=== PATIENT | female | born 1965 | race Caucasian/White ===

== ENCOUNTER → 2021-12-16 09:40 | Outpatient (CLI) | payer OTHER, SELFPAY ==
--- NOTE | ~2021-12-16 | DEXA_ITS ---
Bone Density Report Name: LALO HODGSON Age: 56 Sex: Female Ethnicity: White Date of : 1965 Indication: postmenopausal; screening for osteoporosis; prior fracture; Referring Provider: David*Basilio, Lucrecia Study: Bone densitometry was performed. Exam Date: December 16, 2021 Accession number: [id number] Bone Density: Region BMD T-score Z-score Classification AP Spine (L1, L2, L3) 1.090 0.7 1.9 Normal Femoral Neck (Left) 0.770 -0.7 0.5 Normal Total Hip (Left) 0.854 -0.7 0.1 Normal Femoral Neck (Right) 0.723 -1.1 0.1 Osteopenia Total Hip (Right) 0.825 -1.0 -0.1 Normal Total Hip Mean 0.840 -0.9 0.0 Normal World Health Organization criteria for BMD impression classify patients as: Normal (T-score at or above -1.0), Osteopenia (T-score between -1.0 and -2.5), or Osteoporosis (T-score at or below -2.5). 10-year Fracture Risk(1): Major Osteoporotic Fracture 12% Hip Fracture 1.2% Reported Risk Factors: [place] (), Neck BMD=0.723, BMI=26.0, previous fracture, smoking (1) FRAX(R) Version 3.08. Fracture probability calculated for an untreated patient. Fracture probability may be lower if the patient has received treatment. Clinical Information Provided by Patient: Has had a low trauma fracture Smokes Has used the following medications: Vitamin D, Calcium, MTV Patient maximum height was 60.0 Menopause Age: 47 No regular weight bearing exercise Drinks caffeinated beverages Onset of menses at age 9 Number of children 2 Impression: The patient has low bone mass, based on the Right Femoral Neck T-score. The patient has an estimated ten-year risk of hip fracture of 1.2% and an estimated ten-year risk of major fracture of 12%, based on the WHO FRAX algorithm. The patient has risk factors, including: smoking, previous fracture. Discussion: BONE DENSITY IS LOW AT ONE OR MORE SKELETAL SITES. This patient's lowest T-score is low at one or more skeletal sites. It meets the World Health Organization's (WHO) criteria for ?low bone mass? (T-score between -1.0 and -2.5). The patient's 10-year risk of fracture as calculated by FRAX is less than the threshold where pharmacological therapy is recommended by the National Osteoporosis Foundation (NOF). However, all treatment decisions require clinical judgment and consideration of individual patient factors, including patient preferences, comorbidities, previous drug use, risk factors not captured in the FRAX model (e.g., frailty, falls, vitamin D deficiency, increased bone turnover, interval significant decline in bone density) and possible under or overestimation of fracture risk by FRAX. The patient should follow a healthful lifestyle (good nutrition with adequate calcium and vitamin D, and appropriate weight-bearing exercise). Follow-Up
== END ==
PROVIDERS: PCP Internal Medicine; Visit Provider Nurse Practitioner
DX: Z13.820 Encounter for screening for osteoporosis (principal); Z78.0 Asymptomatic menopausal state; M85.851 Other specified disorders of bone density and structure, right thigh
CPT/HCPCS: 77080

== ENCOUNTER → 2022-05-07 14:14 | Outpatient (CLI) | payer OTHER, SELFPAY ==
--- NOTE | ~2022-05-07 | MM_ITS ---
EXAMINATION: MM screening elizabeth BI w kelly HISTORY: Screening TECHNIQUE: Craniocaudal and mediolateral oblique 3-D tomosynthesis images were obtained and synthetic 2-D images were generated. CAD analysis was submitted and interpreted. COMPARISON: No prior mammogram is available for comparison at this institution. BREAST PARENCHYMAL COMPOSITION: There are scattered areas of fibroglandular density. FINDINGS: There is no evidence of suspicious mass, calcification, or architectural distortion to sugg est malignancy in either breast. There has been no suspicious interval change. IMPRESSION: 1. No mammographic evidence of malignancy. 2. Recommend routine screening mammography in one year. BI-RADS Category 1: Negative Reviewed, dictated and finalized at location A.
== END ==
PROVIDERS: PCP Internal Medicine; Visit Provider Nurse Practitioner
DX: Z12.31 Encounter for screening mammogram for malignant neoplasm of breast (principal)
CPT/HCPCS: 77063; 77067

== ENCOUNTER 2023-05-03 10:04 | Outpatient (CLI) | payer OTHER, SELFPAY ==
--- NOTE | ~2023-05-03 | CT_ITS ---
EXAMINATION: CT lung screening DATE: 05/03/2023 10:19 INDICATION: Personal history of nicotine dependence, current smoker with 20 pack year history TECHNIQUE: Computed tomography (CT) of the chest was performed without intravenous contrast. The dose -length product (DLP) was 53.22 mGy-cm. Automated exposure control and iterative reconstruction techn ique were employed. COMPARISON: None FINDINGS: There is mild emphysema. There is a 3 mm nodule in the right lower lobe. There is a 3 mm no dule in the left upper lobe. The lungs are free of focal airspace opacities. No pleural effusion or p neumothorax. No pathologically enlarged thoracic lymph nodes are identified. The heart size is normal . Calcified coronary artery atherosclerosis is noted. There is moderate thoracic spondylosis. IMPRESSION: 1. Lung-RADS category 2: Benign appearance or behavior. Continue annual screening with noncontrast lo w-dose chest CT in 12 months. Reviewed, dictated and finalized at location F. IMPRESSION: 1. Lung-RADS category 2: Benign appearance or behavior. Continue annual screeni ng with noncontrast low-dose chest CT in 12 months.
== END 2023-05-03 10:05 ==
LOC: MICIMG 10:06
PROVIDERS: PCP Internal Medicine; Visit Provider Internal Medicine
DX: Z12.2 Encounter for screening for malignant neoplasm of respiratory organs (principal); Z87.891 Personal history of nicotine dependence
CPT/HCPCS: 71271

== ENCOUNTER 2024-01-20 14:05 | Outpatient (CLI) | payer OTHER, SELFPAY ==
--- NOTE | ~2024-01-20 | MM_ITS ---
EXAMINATION: MM screening elizabeth BI w kelly HISTORY: Screening TECHNIQUE: Craniocaudal and mediolateral oblique 3-D tomosynthesis images were obtained and synthetic 2-D images were generated. CAD analysis was submitted and interpreted. COMPARISON: 05/07/2022 BREAST PARENCHYMAL COMPOSITION: Not dense: There are scattered areas of fibroglandular density. FINDINGS: There is a focal asymmetry superiorly in the right breast on MLO view, not seen on prior ex amination. The left breast is stable without evidence for malignancy. IMPRESSION: 1. Focal right breast asymmetry superiorly on MLO view only. 2. Additional mammographic views and possible breast ultrasound are recommended. BI-RADS Category 0: Incomplete: Needs additional imaging evaluation. Reviewed, dictated and finalized at location B. IOPULMONARY TECHNOLOGIST IMPRESSION: 1. Focal right breast asymmetry superiorly on MLO view only. 2. Additional mammographic views and possible breast ultrasound are recommended . BI-RADS Category 0: Incomplete: Needs additional imaging evaluation.
== END 2024-01-20 14:06 | disposition home or self-care (01) ==
LOC: MICIMG 14:05
PROVIDERS: PCP Internal Medicine; Visit Provider Nurse Practitioner
DX: Z12.31 Encounter for screening mammogram for malignant neoplasm of breast (principal); R92.8 Other abnormal and inconclusive findings on diagnostic imaging of breast
CPT/HCPCS: 77063; 77067

== ENCOUNTER 2024-03-02 07:41 | Outpatient (CLI) | payer OTHER, SELFPAY ==
--- NOTE | ~2024-03-02 | MMUS_ITS ---
EXAMINATION: MM diagnostic elizabeth RT w kelly, US breast RT limited HISTORY: Right breast asymmetry TECHNIQUE: Additional 3-D tomosynthesis images of the right breast were performed and synthetic 2-D i mages were generated. CAD analysis was submitted and interpreted. High resolution Limited right breas t ultrasound was performed. COMPARISON: Comparison to multiple prior studies sequentially, with oldest reviewed study dated 05/07. BREAST PARENCHYMAL COMPOSITION: Not dense: There are scattered areas of fibroglandular density. FINDINGS: MAMMOGRAPHIC FINDINGS: Right breast asymmetry in the upper aspect of the right breast compresses with spot views, likely sup erimposed fibroglandular content. ULTRASOUND: Limited right breast ultrasound: Normal heterogeneous echotexture without focal solid or cystic mass. IMPRESSION: 1. No evidence for malignancy in the right breast. 2. Routine yearly screening mammogram and regular clinical breast examination are recommended. BI-RADS Category 1: Negative Reviewed, dictated and finalized at location A. L OPERATOR PNEUMATIC IMPRESSION: 1. No evidence for malignancy in the right breast. 2. Routine yearly screening mammogram and regular clinical breast examination a re recommended. BI-RADS Category 1: Negative
== END 2024-03-02 07:42 | disposition home or self-care (01) ==
LOC: MICIMG 07:42
PROVIDERS: PCP Internal Medicine; Visit Provider Obstetrics & Gynecology Gynecology
DX: R92.8 Other abnormal and inconclusive findings on diagnostic imaging of breast (principal)
CPT/HCPCS: 76642; 77061; 77065; G0279

== ENCOUNTER 2024-09-25 10:41 | Outpatient (CLI) | payer OTHER, SELFPAY ==
--- NOTE | ~2024-09-25 | CT_ITS ---
CT Scan of the Chest without Contrast: Clinical Indication: Lung cancer screening, nicotine dependence Technique: Contiguous sections were acquired throughout the chest without intravenous contrast. Dose reduction technique was used on this scan by utilizing automated exposure control and iterative recon struction technique. The dose-length product (DLP) was 54.07 mGy-cm. COMPARISON: 05/03/2023 Findings: There is no evidence of any significant mediastinal, hilar or axillary lymphadenopathy. Coronary doroteo ry calcifications are present. There is no evidence of pleural or pericardial effusion. Stable 3 mm right lower lobe pulmonary nodule (axial image 81). Stable 2 mm left upper lobe nodule (a xial image 50) Images through the upper abdomen reveal no abnormalities. Impression: Lung RADS 2: Benign appearance. 12 month follow-up screening CT advised. Reviewed, dictated and finalized at [facility]. Impression: Lung RADS 2: Benign appearance. 12 month follow-up screening CT advised.
== END 2024-09-25 10:42 | disposition home or self-care (01) ==
LOC: MICIMG 10:42
PROVIDERS: PCP Internal Medicine; Visit Provider Internal Medicine
DX: Z12.2 Encounter for screening for malignant neoplasm of respiratory organs (principal); Z87.891 Personal history of nicotine dependence
CPT/HCPCS: 71271

== ENCOUNTER 2024-11-14 15:11 | Outpatient (CLI) | payer OTHER, SELFPAY ==
--- NOTE | ~2024-11-14 | DEXA_ITS ---
Bone Density Report Name: LALO HODGSON Age: 59 Sex: Female Ethnicity: White Date of : 1965 Indication: postmenopausal; screening for osteoporosis; Referring Provider: BETHANIE*, JOANNE Agarwal Study: Bone densitometry was performed. Exam Date: November 14, 2024 Accession number: [id number] Bone Density: Region BMD T-score Z-score Classification AP Spine(L1, L2) 1.060 0.7 2.1 Normal Femoral Neck (Left) 0.738 -1.0 0.3 Normal Total Hip (Left) 0.829 -0.9 0.1 Normal Femoral Neck (Right) 0.735 -1.0 0.3 Normal Total Hip (Right) 0.809 -1.1 -0.1 Osteopenia Total Hip Mean 0.819 -1.0 0.0 Normal World Health Organization criteria for BMD impression classify patients as: Normal (T-score at or above -1.0), Osteopenia (T-score between -1.0 and -2.5), or Osteoporosis (T-score at or below -2.5). 10-year Fracture Risk(1): Major Osteoporotic Fracture 7.3% Hip Fracture 0.7% Reported Risk Factors: [place] (), Neck BMD=0.738, BMI=26.3, smoking (1) FRAX(R) Version 3.08. Fracture probability calculated for an untreated patient. Fracture probability may be lower if the patient has received treatment. Previous Exams: -- Region Exam Age BMD T-score BMD Change BMD Change Date g/cm2 vs Baseline vs Previous -- AP Spine (L1-L2) 11/14/2024 59 1.060 0.7 3.9%* 3.9%* 12/16/2021 56 1.020 0.4 Total Hip(Left) 11/14/2024 59 0.829 -0.9 -2.9% -2.9% 12/16/2021 56 0.854 -0.7 Total Hip(Right) 11/14/2024 59 0.809 -1.1 -1.9% -1.9% 12/16/2021 56 0.825 -1.0 -- *Denotes significance at 95% confidence level, LSC for AP Spine = 0.022 g/cm2, LSC for Total Hip = 0.027 g/cm2 Clinical Information Provided by Patient: Smokes Has used the following medications: Vitamin D, Calcium Patient maximum height was 60 Menopause Age: 47 No regular weight bearing exercise Does not regularly consume dairy products Drinks caffeinated beverages Onset of menses at age 9 Number of children 2 Impression: The patient has low bone mass, based on the Right Total Hip T-score. The patient has an estimated ten-year risk of hip fracture of 0.7% and an estimated ten-year risk of major fracture of 7.3%, based on the WHO FRAX algorithm. The patient has risk factors, including: smoking. No significant bone loss was observed. Discussion: BONE DENSITY IS LOW AT ONE OR MORE SKELETAL SITES. This patient's lowest T-score is low at one or more skeletal sites. It meets the World Health Organization's (WHO) criteria for ?low bone mass? (T-score between -1.0 and -2.5). The patient's 10-year risk of fracture as calculated by FRAX is less than the threshold where pharmacological therapy is recommended by the National Osteoporosis Foundation (NOF). However, all treatment decisions require clinical judgment and consideration of individual patient factors, including patient preferences, comorbidities, previous drug use, risk factors not captured in the FRAX model (e.g., frailty, falls, vitamin D deficiency, increased bone turnover, interval significant decline in bone density) and possible under or overestimation of fracture risk by FRAX. The patient should follow a healthful lifestyle (good nutrition with adequate calcium and vitamin D, and appropriate weight-bearing exercise). Follow-Up: Consider repeating this study in 2 to 3 years to reassess this patient's status, or sooner if there is some new clinical indication. Reported by: BOLIVAR on 11/14/2024 3:32:00 PM. Reviewed, dictated and finalized at location A.
== END 2024-11-14 15:12 | disposition home or self-care (01) ==
PROVIDERS: PCP Obstetrics & Gynecology Gynecology; Visit Provider Internal Medicine
DX: M81.0 Age-related osteoporosis without current pathological fracture (principal); M85.851 Other specified disorders of bone density and structure, right thigh
CPT/HCPCS: 77080

== ENCOUNTER 2025-01-25 13:41 | Outpatient (CLI) | payer OTHER, SELFPAY ==
--- NOTE | ~2025-01-25 | MM_ITS ---
EXAMINATION: MM screening [facility] BI w kelly HISTORY: Screening TECHNIQUE: Craniocaudal and mediolateral oblique 3-D tomosynthesis images were obtained and synthetic 2-D images were generated. CAD analysis was submitted and interpreted. COMPARISON: Comparison to multiple prior studies sequentially, with oldest reviewed study dated 05/07/2022. BREAST PARENCHYMAL COMPOSITION: Not dense: There are scattered areas of fibroglandular density. FINDINGS: There is no evidence of suspicious mass, calcification, or architectural distortion to suggest malignancy in either breast. There has been no suspicious interval change. IMPRESSION: 1. No mammographic evidence of malignancy. 2. Recommend routine screening mammography in one year. BI-RADS Category 1: Negative Reviewed, dictated and finalized at location O. IS NET MAKER
== END 2025-01-25 13:42 | disposition home or self-care (01) ==
PROVIDERS: PCP Obstetrics & Gynecology Gynecology; Visit Provider Obstetrics & Gynecology Gynecology
DX: Z12.31 Encounter for screening mammogram for malignant neoplasm of breast (principal)
CPT/HCPCS: 77063; 77067

== ENCOUNTER 2025-02-07 11:32 | Outpatient (CLI) | payer OTHER, SELFPAY ==
--- OUTSIDE RECORDS SUMMARY | 2025-02-07 11:47 | XMS_ITS | Data Portability ---
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 Plan of Treatment Reminders Order Date Submit Date Provider Last Modified By Organization Details Last Modified Time Details Appointments None recorded. Lab vitamin D, 25-hydroxy, total, serum 2024 025 [email or web address] [facility] Out[facility] Lab, [address] [place], [address], 5 16:48:57 lipid panel, serum 2024 025 [facility], [address] [place], [address], 5 16:48:56 CMP, serum or plasma 2024 025 [email or web address] [facility], [address] [place], [address], 5 16:48:56 TSH, serum or plasma 2024 025 [id number] [facility], [address] [place], [address], 5 16:48:56 T4, free, serum 2024 025 [email or web address] [facility], [address] [place], [address], 5 16:48:57 CBC w/ auto diff 2024 025 [id number] [facility], [address] [place], [address], 5 16:48:56 vitamin D, 25-hydroxy, total, serum 2022 023 [id number] [facility], [address] [place], [address], 3 16:04:02 CBC w/ auto diff 2022 023 [email or web address] [facility], [address] [place], [address], 3 16:04:01 CMP, serum or plasma [id number] [place] [address] Outpatient Lab, [address] [place], [address], 3 16:04:01 lipid panel, serum 2022 023 [facility], [address] [place], [address], 3 16:04:01 TSH, serum or plasma 2022 023 [email or web address] [facility], [place] Out[facility] Lab, [address] [place], [address], 3 16:04:01 T4, free, serum 2022 023 [facility], [address] [place], [address], 3 16:04:01 T4, free, serum 2022 023 [email or web address] [facility], [place] Out[facility] Lab, [address] [place], [address], 3 16:04:02 Referral None recorded. Procedures None recorded. Surgeries None recorded. Imaging None recorded. Medication Orders lisinopril 20 mg-hydrochl orothiazide 12.5 mg tablet 2023 024 [facility] [id number] In [facility], [address] [place], [address], 14:48:07 Patient TargetsNo targets recorded. Patient Instructions Encounter Date Encounter Id Patient Instructions Last Modified By Organization Details Last Modified Time 07/27/2022 [id number] Follow-up hypertension -hyperlipidemia -GERD by history. Clinically stable at this time with no interval complaints. Is up-to-date on mammography, bone density scanning colonoscopy. Will check blood work in the form of CBC, CMP, lipid, thyroid and vitamin-D level. Follow-up in six months [email or web address] Not available 07/27/2022 11:57:10 02/10/2023 [id number] risk assessment* [email or web address] Not availabl e 02/10/2023 14:45:20 INFLUENZA VACCIN E Recommended today, but patient declined TD/TDAP Patient will get at local pharmacy/health department PNEUMONIA VACCINE Recommended at age 63 SHINGLES Patient will get at local pharmacy/health department MAMMOGRAM: Last Mammogram No screening necessary patient is up to date DEXA SCAN No screening necessary patient is up to date CERVICAL SCREENING/PELVIC EXAMINATION No screening necessary patient is up to date COLORECTAL SCREENING: Last Colonoscopy No screening necessary patient is up to date DEPRESSION SCREENING Negative BMI Appropriate NUTRITION Eat Heart Healthy Diet PHYSICAL ACTIVITY Need more exercise/physical activity VISION Your next exam in: goes every 2 yrs ALCOHOL USE Occasional/Social Use TOBACCO USE current tobacco use LUNG CANCER SCREENING Recommendation for Lung Cancer Screening with LDCT SEXUALLY ACTIVE HEPATITIS C SCREENING Not indicated GLUCOSE SCREENING recommended LIPID SCREENING recommended [email or web address] Not available 02/10/2023 14:33:32 Adult health evaluation risk assessment stable. Follow-up for hypertension -hyperlipidemia -GERD all clinically stable. Has had recent blood work performed which looked adequate. Overall is doing well. Will continue on current medications follow-up in six months. FDA recommendations of a influenza, RSV, COVID, pneumococcal immunizations strongly advised. Portions of the record may have been created with voice recognition software. Occasional wrong-word or s ound-a-like substitutions may have occurred due to the inherent limitations of voice recognition software. Read the chart carefully and recognize, using context, where substitutions have occurred. Low-dose CT scan of the chest per December 09, 2022 [employer] guideline [email or web address] Not available 02/10/2023 14:39:55 08/11/2023 [id number] Follow-up for essential hypertension, hyperlipidemia GERD all clinically stable. Will continue on current medications. Does need a mammogram. Will hold off on any additional blood work until next visit in six months. Continue on current Rx Additional Orders and/or Directives: 1. Mammogram for [place] imaging Next Appointment: 6 Months Approximate Date: 02/07/2024 Portions of the record may have been created with voice recognition software. Occasional wrong-word or s ound-a-like substitutions may have occurred due to the inherent limitations of voice recognition software. Read the chart carefully and recognize, using context, where substitutions have occurred. [email or web address] Not available 08/11/2023 14:48:04 02/21/2024 [id number] Follow-up essent ial hypertension, hyperlipidemia, GERD as well as osteoarthritis. Check blood work consisting of CBC, CMP, lipid, thyroid and vitamin-D level. Continue on current Rx follow-up in six months Follow Up: 6 Months Approximate Date: 08/19/2024 Portions of the record may have been created with voice recognition software. Occasional wrong-word or s ound-a-like substitutions may have occurred due to the inherent limitations of voice recognition software. Read the chart carefully and recognize, using context, where substitutions have occurred. Created: Joanne Romero M.D. 02.21.2024 04:40 PM [email or web address] Not available 02/21/2024 17:40:50 08/22/2024 [id number] Adult health examination risk assessment stable. Follow-up for hypertension, hyperlipidemia and GERD all clinically stable. Had recent blood work which looked reasonably good. Was increased on her rosuvastatin from 10-20 mg daily. Currently he is doing well. Does need a low-dose CT scan of the chest as well as bone density scan. Will continue with current Rx follow-up in six months. Advised on FDA Recommended Immunizations including but not limited to Influenza, COVID,Tetanus,TDAP, Pneumococcal,RSV and Shingles Additional Orders - Directives - Recommendations 1. Bone density scan 2. low-dose CT scan of the chest Follow Up: 6 Months Approximate Date: 02/18/2025 Portions of record are template driven. When necessary additional context will be provided. Additionally some portions have been created with voice recognition software. Occasional wrong-word or s ound-a-like substitutions may have occurred due to the inherent limitations of voice recognition software. Read the chart carefully and recognize, using context, where substitutions may have occurred. Created: Joanne Romero M.D. 08.22.2024 02:29 PM [email or web address] Not available 08/22/2024 15:29:48 Reason for Referral None Reported. Results Created Date Observation Date Name Description Value Unit Range Abnormal Flag Note LastModifiedBy Organization Detail LastModifiedTime 01/24/2001/25/2023 LIPID PANEL , STAND FAUSTO cholesterol, total 189 mg/dL <200 normal Not Available [address], [address], 01/25/2023 12:55:20 01/24/20 23 01/25/2023 LIPID PANEL , STAND FAUSTO HDL cholesterol 55 mg/dL > or = 50 normal Not Available [address] [address] [place], [address], 01/25/2023 12:55:20 01/24/20 23 01/25/2023 LIPID PANEL , STAND FAUSTO triglyceride s 118 mg/dL <150 normal Not Available [address], [address], 01/25/2023 12:55:20 01/24/20 23 01/25/2023 LIPID PANEL , STAND FAUSTO LDL-choleste rol 111 mg/dL _(clarence c) high Refer ence range : <100 Xavier able range <100 mg/dL for prima ry preve ntion ; <70 mg/dL for patie nts with CHD or diabe tic patie nts with > or = 2 CHD risk facto rs. LDL-C is now calcu lated using the [facility] kins lissyu sathish guevara, which is a valid ated novel metho d provi jared kennedy accur acy than the Fried anabel equat ion in the estim ation of LDL-C . Leti n SS et al. SARAH. 2013; 310(1 9): 2061- 2068 (http ://ed ucati on.U.Gene.us velmaSocialware. com/f aq/FA Q164) Not Available [address], [address], 01/25/2023 12:55:20 01/24/20 23 01/25/2023 LIPID PANEL , STAND FAUSTO chol/HDLC ratio 3.4 (calc ) <5.0 normal Not Available [address], [address], 01/25/2023 12:55:20 01/24/20 23 01/25/2023 LIPID PANEL , STAND FAUSTO non HDL cholesterol 134 mg/dL _(clarence c) <130 high For patie nts with diabe homero plus 1 major ASCVD risk facto r, treat ing to a non-H DL-C goal of <100 mg/dL (LDL- C of <70 mg/dL ) is consi sawyer navarrete n. Not Available [address] [address] [place], [address], 01/25/2023 12:55:20 01/24/20 23 01/25/2023 COMPR EHENS LEELA METAB OLIC PANEL glucose 99 mg/dL 65-99 normal Fasti ng refer ence inter bashir Not Available [address] [address] [place], [address], 01/25/2023 12:55:21 01/24/20 23 01/25/2023 COMPR EHENS LEELA METAB OLIC PANEL urea nitrogen (BUN) 18 mg/dL 7-25 normal Not Available [address] [address] [place], [address], 01/25/2023 12:55:21 01/24/20 23 01/25/2023 COMPR EHENS LEELA METAB OLIC PANEL creatinine 0.62 mg/dL 0.50-1 .03 normal Not Available [address], [address], 01/25/2023 12:55:21 01/24/20 23 01/25/2023 COMPR EHENS LEELA METAB OLIC PANEL eGFR 103 mL/mi n/1.7 3m2 > or = 60 normal Not Available [address], [address], 01/25/2023 12:55:21 01/24/20 23 01/25/2023 COMPR EHENS LEELA METAB OLIC PANEL BUN/creatini ne ratio SEE NOTE: (calc ) 6-22 Not Repor belle: BUN and Creat inine are withi n refer ence range . Not Available [address], [address], 01/25/2023 12:55:21 01/24/20 23 01/25/2023 COMPR EHENS LEELA METAB OLIC PANEL sodium 138 mmol/ L 135-14 6 normal Not Available [address], [address], 01/25/2023 12:55:21 01/24/20 23 01/25/2023 COMPR EHENS LEELA METAB OLIC PANEL potassium 3.9 mmol/ L 3.5-5. 3 normal Not Available [address], [address], 01/25/2023 12:55:21 01/24/20 23 01/25/2023 COMPR EHENS LEELA METAB OLIC PANEL chloride 102 mmol/ L 98-110 normal Not Available [address], [address], 01/25/2023 12:55:21 01/24/20 23 01/25/2023 COMPR EHENS LEELA METAB OLIC PANEL carbon dioxide 28 mmol/ L 20-32 normal Not Available [address], [address], 01/25/2023 12:55:21 01/24/20 23 01/25/2023 COMPR EHENS LEELA METAB OLIC PANEL calcium 9.4 mg/dL 8.6-10 .4 normal Not Available [address], [address], 01/25/2023 12:55:21 01/24/20 23 01/25/2023 COMPR EHENS LEELA METAB OLIC PANEL protein, total 6.5 g/dL 6.1-8. 1 normal Not Available [address], [address], 01/25/2023 12:55:21 01/24/20 23 01/25/2023 COMPR EHENS LEELA METAB OLIC PANEL albumin 4.0 g/dL 3.6-5. 1 normal Not Available [address], [address], 01/25/2023 12:55:21 01/24/20 23 01/25/2023 COMPR EHENS LEELA METAB OLIC PANEL globulin 2.5 g/dL_ (calc ) 1.9-3. 7 normal Not Available [address], [address], 01/25/2023 12:55:21 01/24/20 23 01/25/2023 COMPR EHENS LEELA METAB OLIC PANEL albumin/glob ulin ratio 1.6 (calc ) 1.0-2. 5 normal Not Available [address], [address], 01/25/2023 12:55:21 01/24/20 23 01/25/2023 COMPR EHENS LEELA METAB OLIC PANEL bilirubin, total 0.5 mg/dL 0.2-1. 2 normal Not Available [address], [address], 01/25/2023 12:55:21 01/24/20 23 01/25/2023 COMPR EHENS LEELA METAB OLIC PANEL alkaline phosphatase 92 U/L 37-153 normal Not Available [facility] [place] [employer] [address], [address], 01/25/2023 12:55:21 01/24/20 23 01/25/2023 COMPR EHENS LEELA METAB OLIC PANEL AST 20 U/L 10-35 normal Not Available [address], [address], 01/25/2023 12:55:21 01/24/20 23 01/25/2023 COMPR EHENS LEELA METAB OLIC PANEL ALT 24 U/L 6-29 normal Not Available [address], [address], 01/25/2023 12:55:21 01/24/20 23 01/25/2023 CBC (INCL UDES DIFF/ PLT) white blood cell count 6.4 thous and/u L 3.8-10 .8 normal Not Available [address], [address], 01/25/2023 12:55:23 01/24/20 23 01/25/2023 CBC (INCL UDES DIFF/ PLT) red blood cell count 4.56 fab on/uL 3.80-5 .10 normal Not Available [address], [address], 01/25/2023 12:55:23 01/24/20 23 01/25/2023 CBC (INCL UDES DIFF/ PLT) hemoglobin 14.3 g/dL 11.7-1 5.5 normal Not Available [address], [address], 01/25/2023 12:55:23 01/24/20 23 01/25/2023 CBC (INCL UDES DIFF/ PLT) hematocrit 43.3 % 35.0-4 5.0 normal Not Available [address], [address], 01/25/2023 12:55:23 01/24/20 23 01/25/2023 CBC (INCL UDES DIFF/ PLT) MCV 95.0 fL 80.0-1 00.0 normal Not Available [address], [address], 01/25/2023 12:55:23 01/24/20 23 01/25/2023 CBC (INCL UDES DIFF/ PLT) MCH 31.4 pg 27.0-3 3.0 normal Not Available [address], [address], 01/25/2023 12:55:23 01/24/20 23 01/25/2023 CBC (INCL UDES DIFF/ PLT) MCHC 33.0 g/dL 32.0-3 6.0 normal Not Available [address], [address], 01/25/2023 12:55:23 01/24/20 23 01/25/2023 CBC (INCL UDES DIFF/ PLT) RDW 12.9 % 11.0-1 5.0 normal Not Available [address], [address], 01/25/2023 12:55:23 01/24/20 23 01/25/2023 CBC (INCL UDES DIFF/ PLT) platelet count 275 thous and/u L 140-40 0 normal Not Available [address], [address], 01/25/2023 12:55:23 01/24/20 23 01/25/2023 CBC (INCL UDES DIFF/ PLT) MPV 10.5 fL 7.5-12 .5 normal Not Available [address], [address], 01/25/2023 12:55:23 01/24/20 23 01/25/2023 CBC (INCL UDES DIFF/ PLT) absolute neutrophils 3770 cells /uL 1500-7 800 normal Not Available [address], [address], 01/25/2023 12:55:23 01/24/20 23 01/25/2023 CBC (INCL UDES DIFF/ PLT) absolute lymphocytes 1869 cells /uL 850-39 00 normal Not Available [address], [address], 01/25/2023 12:55:23 01/24/20 23 01/25/2023 CBC (INCL UDES DIFF/ PLT) absolute monocytes 499 cells /uL 200-95 0 normal Not Available [address], [address], 01/25/2023 12:55:23 01/24/20 23 01/25/2023 CBC (INCL UDES DIFF/ PLT) absolute eosinophils 243 cells /uL 15-500 normal Not Available [address], [address], 01/25/2023 12:55:23 01/24/20 23 01/25/2023 CBC (INCL UDES DIFF/ PLT) absolute basophils 19 cells /uL 0-200 normal Not Available [address], [address], 01/25/2023 12:55:23 01/24/20 23 01/25/2023 CBC (INCL UDES DIFF/ PLT) neutrophils 58.9 % normal Not Available [address], [address], 01/25/2023 12:55:23 01/24/20 23 01/25/2023 CBC (INCL UDES DIFF/ PLT) lymphocytes 29.2 % normal Not Available [address], [address], 01/25/2023 12:55:23 01/24/20 23 01/25/2023 CBC (INCL UDES DIFF/ PLT) monocytes 7.8 % normal Not Available [address], [address], 01/25/2023 12:55:23 01/24/20 23 01/25/2023 CBC (INCL UDES DIFF/ PLT) eosinophils 3.8 % normal Not Available [address], [address], 01/25/2023 12:55:23 01/24/20 23 01/25/2023 CBC (INCL UDES DIFF/ PLT) basophils 0.3 % normal Not Available [address], [address], 01/25/2023 12:55:23 01/24/20 23 01/25/2023 T4, FREE T4, free 1.3 NG/dL 0.8-1. 8 normal Not Available [address], [address], 01/25/2023 12:55:25 01/24/20 23 01/25/2023 TSH TSH 1.28 mIU/L 0.40-4 .50 normal Not Available [address], [address], 01/25/2023 12:55:27 01/24/20 23 01/25/2023 VITAM IN D,25- OH,TO CHAS,I A vitamin D,25-oh,tota l,ia 55 NG/mL 30-100 normal Vitam in D Statu s 25-OH Vitam in D: Defic iency : <20 ng/mL Insuf ficie ncy: 20 - 29 ng/mL Optim al: > or = 30 ng/mL For 25-OH Vitam in D testi ng on patie nts on D2-galaviz pplem entat ion and patie nts for whom quant itati on of D2 and D3 fract ions is requi red, the [facility] Assur eD(TM ) 25-OH VIT D, (D2,D 3), LC/MS /MS is recom dex d: order code 99863 (ikmmy ents >2yrs ). See Note 1 Note 1 For addit ional infor medhat melendez e refer to http: //[facility] rosy Pinto stDia gnost ics.c om/fa q/FAQ 199 (This link is being provi ded for infor yanira choi/ educa maren bangura purpo ses only. ) Not Available [employer] [address] [address] [place], [address], 01/25/2023 12:55:28 08/15/1908/15/2024 LIPID PANEL , STAND FAUSTO cholesterol, total 212 mg/dL <200 high Not Available [employer] [address], [address], 08/15/2024 03:16:15 08/15/19 25 08/15/2024 LIPID PANEL , STAND FAUSTO HDL cholesterol 51 mg/dL > or = 50 normal Not Available [address], [address], 08/15/2024 03:16:15 08/15/19 25 08/15/2024 LIPID PANEL , STAND FAUSTO triglyceride s 168 mg/dL <150 high Not Available [employer] [address], [address], 08/15/2024 03:16:15 08/15/19 25 08/15/2024 LIPID PANEL , STAND FAUSTO LDL-choleste rol 130 mg/dL _(clarence c) high Refer ence range : <100 Xavier able range <100 mg/dL for prima ry preve ntion ; <70 mg/dL for patie nts with CHD or diabe tic patie nts with > or = 2 CHD risk facto rs. LDL-C is now calcu lated using the Leti n[employer]Hop kins calcu latio n, which is a valid ated novel metho d provi ding patrica r accur acy than the Fried anabel equat ion in the estim ation of LDL-C . Leti guevara SS et al. SARAH. 2013; 310(1 9): 2061- 2068 (http ://ed ucati on.Qu velmaInspire Medical Systems pericoPairys. com/f aq/FA Q164) Not Available [address] [address] [place], [address], 08/15/2024 03:16:15 08/15/1908/15/2024 LIPID PANEL , STAND FAUSTO chol/HDLC ratio 4.2 (calc ) <5.0 normal Not Available [address] [address] [facility] [place], [address], 08/15/2024 03:16:15 08/15/1908/15/2024 LIPID PANEL , STAND FAUSTO non HDL cholesterol 161 mg/dL _(clarence c) <130 high For patie nts with diabe homero plus 1 major ASCVD risk facto r, treat ing to a non-H DL-C goal of <100 mg/dL (LDL- C of <70 mg/dL ) is consi dered a thera peuti c optio n. Not Available [address] [address] [facility] [place], [address], 08/15/2024 03:16:15 08/15/1908/15/2024 COMPR EHENS LEELA METAB OLIC PANEL glucose 103 mg/dL 65-99 high Fasti ng refer ence inter bashir For someo ne witho ut known diabe homero, a gluco se value betwe en 100 and 125 mg/dL is consi stent with predi abete s and shoul d be confi rmed with a follo w-up test. Not Available [address] [address] [address] , [place], [address], 08/15/2024 03:16:16 08/15/1908/15/2024 COMPR EHENS LEELA METAB OLIC PANEL urea nitrogen (BUN) 24 mg/dL 7-25 normal Not Available [address], [address], 08/15/2024 03:16:16 08/15/19 25 08/15/2024 COMPR EHENS LEELA METAB OLIC PANEL creatinine 0.64 mg/dL 0.50-1 .05 normal Not Available [address], [address], 08/15/2024 03:16:16 08/15/19 25 08/15/2024 COMPR EHENS LEELA METAB OLIC PANEL eGFR 101 mL/mi n/1.7 3m2 > or = 60 normal Not Available [address], [address], 08/15/2024 03:16:16 08/15/1908/15/2024 COMPR EHENS LEELA METAB OLIC PANEL BUN/creatini ne ratio SEE NOTE: (calc ) 6-22 Not Repor belle: BUN and Creat inine are withi n refer ence range . Not Available [address], [address], 08/15/2024 03:16:16 08/15/19 25 08/15/2024 COMPR EHENS LEELA METAB OLIC PANEL sodium 141 mmol/ L 135-14 6 normal Not Available [address], [address], 08/15/2024 03:16:16 08/15/19 25 08/15/2024 COMPR EHENS LEELA METAB OLIC PANEL potassium 3.8 mmol/ L 3.5-5. 3 normal Not Available [address], [address], 08/15/2024 03:16:16 08/15/19 25 08/15/2024 COMPR EHENS LEELA METAB OLIC PANEL chloride 103 mmol/ L 98-110 normal Not Available [address], [address], 08/15/2024 03:16:16 08/15/19 25 08/15/2024 COMPR EHENS LEELA METAB OLIC PANEL carbon dioxide 28 mmol/ L 20-32 normal Not Available [address], [address], 08/15/2024 03:16:16 08/15/1908/15/2024 COMPR EHENS LELEA METAB OLIC PANEL calcium 9.8 mg/dL 8.6-10 .4 normal Not Available [address], [address], 08/15/2024 03:16:16 08/15/1908/15/2024 COMPR EHENS LEELA METAB OLIC PANEL protein, total 6.8 g/dL 6.1-8. 1 normal Not Available [address], [address], 08/15/2024 03:16:16 08/15/1908/15/2024 COMPR EHENS LEELA METAB OLIC PANEL albumin 4.3 g/dL 3.6-5. 1 normal Not Available [address], [address], 08/15/2024 03:16:16 08/15/1908/15/2024 COMPR EHENS LEELA METAB OLIC PANEL globulin 2.5 g/dL_ (calc ) 1.9-3. 7 normal Not Available [address], [address], 08/15/2024 03:16:16 08/15/19 25 08/15/2024 COMPR EHENS LEELA METAB OLIC PANEL albumin/glob ulin ratio 1.7 (calc ) 1.0-2. 5 normal Not Available [address], [address], 08/15/2024 03:16:16 08/15/1908/15/2024 COMPR EHENS LEELA METAB OLIC PANEL bilirubin, total 0.5 mg/dL 0.2-1. 2 normal Not Available [address], [address], 08/15/2024 03:16:16 08/15/1908/15/2024 COMPR EHENS LEELA METAB OLIC PANEL alkaline phosphatase 95 U/L 37-153 normal Not Available [address], [address], 08/15/2024 03:16:16 08/15/1908/15/2024 COMPR EHENS LEELA METAB OLIC PANEL AST 16 U/L 10-35 normal Not Available [address], [address], 08/15/2024 03:16:16 08/15/1908/15/2024 COMPR EHENS LEELA METAB OLIC PANEL ALT 22 U/L 6-29 normal Not Available [address], [address], 08/15/2024 03:16:16 08/15/1908/15/2024 CBC (INCL UDES DIFF/ PLT) white blood cell count 6.5 thous and/u L 3.8-10 .8 normal Not Available [address], [address], 08/15/2024 03:16:17 08/15/1908/15/2024 CBC (INCL UDES DIFF/ PLT) red blood cell count 4.91 fab on/uL 3.80-5 .10 normal Not Available [address], [address], 08/15/2024 03:16:17 08/15/1908/15/2024 CBC (INCL UDES DIFF/ PLT) hemoglobin 15.3 g/dL 11.7-1 5.5 normal Not Available [address], [address], 08/15/2024 03:16:17 08/15/1908/15/2024 CBC (INCL UDES DIFF/ PLT) hematocrit 47.2 % 35.0-4 5.0 high Not Available [address], [address], 08/15/2024 03:16:17 08/15/1908/15/2024 CBC (INCL UDES DIFF/ PLT) MCV 96.1 fL 80.0-1 00.0 normal Not Available [address], [address], 08/15/2024 03:16:17 08/15/1908/15/2024 CBC (INCL UDES DIFF/ PLT) MCH 31.2 pg 27.0-3 3.0 normal Not Available [address], [address], 08/15/2024 03:16:17 08/15/1908/15/2024 CBC (INCL UDES DIFF/ PLT) MCHC 32.4 g/dL 32.0-3 6.0 normal For adult s, a sligh t decre ase in the calcu lated MCHC value (in the range of 30 to 32 g/dL) is most likel y not clini bigg signi fican t; xiomara er, it shoul d be inter prete d with cauti on in corre latio n with other red cell karen eters and the patie nt's clini clarence condi tion. Not Available [address], [address], 08/15/2024 03:16:17 08/15/1908/15/2024 CBC (INCL UDES DIFF/ PLT) RDW 12.7 % 11.0-1 5.0 normal Not Available [address], [place], [address], 08/15/2024 03:16:17 08/15/1908/15/2024 CBC (INCL UDES DIFF/ PLT) platelet count 279 thous and/u L 140-40 0 normal Not Available [address], [address], 08/15/2024 03:16:17 08/15/1908/15/2024 CBC (INCL UDES DIFF/ PLT) MPV 10.4 fL 7.5-12 .5 normal Not Available [facility] [address], [address], 08/15/2024 03:16:17 08/15/1908/15/2024 CBC (INCL UDES DIFF/ PLT) absolute neutrophils 4082 cells /uL 1500-7 800 normal Not Available [address], [address], 08/15/2024 03:16:17 08/15/1908/15/2024 CBC (INCL UDES DIFF/ PLT) absolute lymphocytes 1573 cells /uL 850-39 00 normal Not Available [address], [address], 08/15/2024 03:16:17 08/15/1908/15/2024 CBC (INCL UDES DIFF/ PLT) absolute monocytes 553 cells /uL 200-95 0 normal Not Available [address], [address], 08/15/2024 03:16:17 08/15/1908/15/2024 CBC (INCL UDES DIFF/ PLT) absolute eosinophils 254 cells /uL 15-500 normal Not Available [address], [address], 08/15/2024 03:16:17 08/15/1908/15/2024 CBC (INCL UDES DIFF/ PLT) absolute basophils 39 cells /uL 0-200 normal Not Available [facility] [address], [address], 08/15/2024 03:16:17 08/15/1908/15/2024 CBC (INCL UDES DIFF/ PLT) neutrophils 62.8 % normal Not Available [facility] [address], [address], 08/15/2024 03:16:17 08/15/1908/15/2024 CBC (INCL UDES DIFF/ PLT) lymphocytes 24.2 % normal Not Available [facility] [address], [address], 08/15/2024 03:16:17 08/15/1908/15/2024 CBC (INCL UDES DIFF/ PLT) monocytes 8.5 % normal Not Available [address], [address], 08/15/2024 03:16:17 08/15/1908/15/2024 CBC (INCL UDES DIFF/ PLT) eosinophils 3.9 % normal Not Available [facility] [address], [address], 08/15/2024 03:16:17 08/15/1908/15/2024 CBC (INCL UDES DIFF/ PLT) basophils 0.6 % normal Not Available [facility] [address], [address], 08/15/2024 03:16:17 08/15/1908/15/2024 T4, FREE T4, free 1.2 NG/dL 0.8-1. 8 normal Not Available [address], [address], 08/15/2024 03:16:18 08/15/1908/15/2024 TSH TSH 1.19 mIU/L 0.40-4 .50 normal Not Available [address] [address] [address] [place], [address], 08/15/2024 03:16:19 08/15/1908/15/2024 VITAM IN D,25- OH,TO CHAS,I A vitamin D,25-oh,tota l,ia 67 NG/mL 30-100 normal Vitam in D Statu s 25-OH Vitam in D: Defic iency : <20 ng/mL Insuf ficie ncy: 20 - 29 ng/mL Optim al: > or = 30 ng/mL For 25-OH Vitam in D testi ng on patie nts on D2-galaviz pplem entat ion and patie nts for whom quant itati on of D2 and D3 fract ions is requi red, the [facility] Assur eD(TM ) 25-OH VIT D, (D2,D 3), LC/MS /MS is recom dxe d: order code 90180 (kimmy ents >2yrs ). See Note [address] to have a [employer] gemini copy faxed has been janki moreno ed[place]: [phone] Note 1 For addit ional infor medhat melendez refer to http: //[facility] rosy cuenca [email or web address] om/fa q/FAQ 199 (This link is being provi ded for infor yanira choi/ nuria bangura purpo ses only. ) Not Available [address] , [place], [address], 08/15/2024 03:16:20 05/03/1905/03/2023 LDCT, chest , for lung cance r scree xavier No observ ation record ed. [email or web address] [facility] [address], [place], [address], 05/04/2023 07:56:15 05/12/1905/03/2023 LDCT, chest , for lung cance r scree xavier No observ ation record ed. [email or web address] Not Available 2023 06:45:01 01/20/20 24 01/20/2024 MAMMO , scree xavier, bilat eral No observ ation record ed. [address] [facility] [address], [place], [address], 01/20/2024 16:18:37 01/21/20 24 01/20/2024 MAMMO , brandy samuelg, bilat eral No observ ation record ed. [address] [facility] [address], [place], [address], 01/21/2024 10:53:08 03/02/19 25 03/02/2024 MAMMO , brandy samuelg, bilat eral No observ ation record ed. [address] [facility] [address], [place], [address], 03/02/2024 09:56:43 09/26/19 25 09/25/2024 LDCT, chest , for lung cance r brandy samuelg No observ ation record ed. [address] [facility] [address], [place], [address], 09/25/2024 13:52:19 11/16/19 25 11/14/2024 bone densi ty No observ ation record ed. [address] [facility] [address], [place], [address], 11/15/2024 17:34:46 Result Notes None recorded. Problems Name Problem SNOMED Code Status Onset Date Resolution Date Notes Provider Name and Address Organization Details Recorded Time Tobacco user 878076759 Active Not Available [facility] 3 12:48:20 Benign essential hypertension 2450512 Active Not Available [facility] 3 12:48:20 Gastroesophag eal reflux disease 045025968 Active Not Available [facility] 3 12:48:20 Pure hypercholeste rolemia 194531649 Active Not Available [facility] 3 12:48:21 Current tear of medial cartilage AND/OR meniscus of knee Active Not Available [facility] 3 12:48:21 Knee pain Active Not Available [facility] 3 12:48:21 Osteoarthriti s 038957264 Active Not Available [facility] 3 12:48:21 Heart murmur 23470863 Active Not Available [facility] 3 12:48:21 Vitamin D deficiency 59661031 Active 2017 Not Available [facility] 3 12:48:21 Hypertensive disorder 77816210 Active 2018 Not Available [facility] 3 12:48:21 Acute conjunctiviti s 91563462 Active 2022 Joanne Romero MD [address] [facility] [address], [place], [address] , [facility] 3 10:42:16 Senile osteoporosis 26398180 Active 2024 Patricia Salmon null, [facility] 5 15:35:43 Fever 679248522 Active 2024 Mary Zavaleta CMA null, [facility] 5 10:54:16 Problem Notes None recorded. Medical Equipment None Reported. Medications Name Sig Start Date Stop Date Status Note LastModified by Organization Details LastModified Time amoxicillin 500 mg capsule Take 1 capsule 3 times a day by oral route for 10 days. 11/09 completed Not Available Not Available Not Available Augmentin 875 mg-125 mg tablet Take 1 tablet every 12 hours by oral route. active Not Available Not Available No t Available lisinopril 20 mg-hydrochl orothiazide 12.5 mg tablet TAKE 1 TABLET BY MOUTH EVERY DAY active Not Available Not Available No t Available azithromyci n 250 mg tablet TAKE 2 TABLETS (500 MG) BY ORAL ROUTE ONCE DAILY FOR 1 DAY THEN 1 TABLET (250 MG) BY ORAL ROUTE ONCE DAILY FOR 4 DAYS 06/16 completed Not Available Not Available Not Available metoprolol succinate ER 50 mg tablet,exte nded release 24 hr TAKE 1 TABLET BY MOUTH EVERY DAY active Not Available Not Available No t Available penicillin V potassium 500 mg tablet TAKE 2 TABS BY MOUTH NOW THEN 1 EVERY 6 HOURS UNTIL GONE 02/10 completed Not Available Not Available Not Available aspirin 81 mg tablet,robert yed release Take 1 tablet every day by oral route. 10/07 completed Not Available Not Available Not Available dexamethaso ne 2 mg tablet One Tablet TID for 3 Days One Tablet BID for 3 Days One Table once daily 3 days active Not Available Not Available No t Available simvastatin 20 mg tablet TAKE 1 TABLET BY MOUTH EVERY DAY 08/15 completed Not Available Not Available Not Available tobramycin 0.3 % eye drops INSTILL 1 DROP INTO AFFECTED EYE EVERY 4 HOURS 02/10 completed Not Available Not Available Not Available clotrimazol e 1 % topical solution INSTILL 5 DROPS IN THE RIGHT EAR CANAL 3-4 TIMES PER DAY FOR 10-14 DAYS 02/10 completed Not Available Not Available Not Available estradiol 0.01% (0.1 mg/gram) vaginal cream INSERT 1 GRAM VAGINALLY TWICE WEEKLY active Not Available Not Available No t Available methylpredn isolone 4 mg tablets in a dose pack Take by oral route as per package insert active Not Available Not Available No t Available oxybutynin chloride 5 mg tablet TAKE 1/2 (HALF) A TABLET BY MOUTH TWICE A DAY active Not Available Not Available No t Available neomycin-po lymyxin-hyd rocort 3.5 mg-10,000 unit/mL-1 % ear drops,susp INSTILL 4 DROPS INTO RIGHT EAR EVERY 8 HOURS USE UNTIL FOLLOW UP 02/10 completed Not Available Not Available Not Available rosuvastati n 20 mg tablet TAKE 1 TABLET BY MOUTH EVERY DAY 2024 active Not Available Not Available Not Avai lable Multivitami n 50 Plus tablet Take 1 tablet every day by oral route. 2021 active Not Available Not Available Not Avai lable multivitami n 10/07 completed Not Available Not Available Not Available Os-Clarence 500 + D3 500 mg-15 mcg (600 unit) tablet Take 1 tablet twice a day by oral route. 2021 active Not Available Not Available Not Avai lable Caltrate daily 12/22 completed Not Available Not Available Not Available Flowflex COVID-19 Antigen Home Test kit 02/10 completed Not Available Not Available Not Available Vitals Date Recorded Body height Body mass index (BMI) Body weight Heart rate Body temperature Oxygen saturation Systolic And Diastolic Provider Name and Address Organization Details Last Updated DateTime 4 152.4 cm 25.8 kg/m2 58346.1 9 g 78 /min 97 [degF] 99 % 120/68 mm[Hg] Pallavi [employer] [facility] [employer] 4 14:27:40 Date Recorded Body height Body mass index (BMI) Body weight Heart rate Body temperature Oxygen saturation Systolic And Diastolic Provider Name and Address Organization Details Last Updated DateTime 5 152.4 cm 25.6 kg/m2 18366.6 g 84 /min 97 [degF] 95 % 118/60 mm[Hg] [employer] [facility] [employer] 5 17:35:06 Date Recorded Body height Body mass index (BMI) Body weight Body temperature Heart rate Oxygen saturation Systolic And Diastolic Provider Name and Address Organization Details Last Updated DateTime 3 152.4 cm 25.4 kg/m2 52034.0 1 g 96.8 [degF] 76 /min 97 % 128/82 mm[Hg] Sridevi Yousif MA [employer] [facility] [employer] 3 11:45:26 Date Recorded Body height Body mass index (BMI) Body weight Heart rate Body temperature Oxygen saturation Systolic And Diastolic Provider Name and Address Organization Details Last Updated DateTime 4 152.4 cm 25.8 kg/m2 86258.1 9 g 93 /min 97.2 [degF] 98 % 138/80 mm[Hg] SATISH Segovia [employer] [facility] [employer] 4 14:38:06 Date Recorded Body height Body mass index (BMI) Body weight Heart rate Body temperature Oxygen saturation Systolic And Diastolic Provider Name and Address Organization Details Last Updated DateTime 5 152.4 cm 25.6 kg/m2 33333.6 g 76 /min 97 [degF] 97 % 118/72 mm[Hg] Pallavi Mendez [employer] [facility] 5 14:54:48 Social History Question Answer Notes LastModified by Organizat ion Details LastModified Time In The 14 Days Before Symptom Onset, Have You Had Close Contact With A Laboratory-confirme d COVID-19 While That Case Was Ill? No [id number] Information not available 04/08/2022 In The 14 Days Before Symptom Onset, Have You Had Close Contact With A Person Who Is Under Investigation For COVID-19 While That Person Was Ill? No [id number] Information not available 04/08/2022 Have You Recently Traveled Abroad? No [id number] Information not available 04/08/2022 Sex: Unknown Functional Status None recorded. Mental Status None recorded. Family History Nothing Reported Notes:Mother 60 from yakov ng cancer Father 79 essential hypertension , CABG, CHF One brother from cancer of lung Medical History Condition Response NERVE DISEASE N BLINDNESS N RHEUMATIC FEVER N KIDNEY STONES N BLADDER PROBLEMS N MRSA N OTHER # 1 N POLIO N LUNG DISEASE/DISORDER N HISTORY OF DRUG ABUSE N RADIATION / CHEMOTHERAPY N COPD N Other # 2 N BLOOD DISEASES N EAR OR HEARING PROBLEMS N MUMPS N SHINGLES N BOWEL PROBLEMS N DEPRESSION (INCLUDING POST ) N STROKE/TIA N ULCERS N BENIGN PROSTATIC HYPERPLASIA N MEASLES N HYPOTENSION N MYOCARDIAL INFARCTION N OBESITY N GERD/NAUSEA N ANEURYSM N URINARY/BLADDER/KIDNEY PROBLEMS N CORONARY ARTERY DISEASE (CAD) N ADDICTION CONCERNS N ENDOMETRIOSIS N Impotence N USE OF BLOOD THINNERS N SKIN PROBLEMS N GASTROINTESTINAL DISORDER N PERIPHERAL VASCULAR DISEASE N MUSCLE,JOINT OR BONE PROBLEMS N GASTROINTESTINAL BLEEDING N BLOOD CLOTS N ASTHMA N CATARACTS N ERECTILE DYSFUNCTION N VARICOSITIES N GI PROBLEMS N Low Testosterone N INFERTILITY N AIDS/HIV N CHEMOTHERAPY / RADIATION N LIVER DISEASE N MALE HYPOGONADISM N HYPERTENSION Y Deficiency N TOURETTE'S N ANXIETY DISORDER N BLOOD TRANSFUSION N ANEMIA/BLOOD DISORDER N CHRONIC EAR INFECTIONS N BRONCHITIS N TUBERCULOSIS N GLAUCOMA N FOOT PROBLEM N DIVERTICULITIS N CHICKENPOX N SLEEP APNEA N INFECTIOUS DISEASE N HEART ARRHYTHMIA N PROSTATE N INSOMNIA N HIGH CHOLESTEROL / HYPERLIPIDEMIA Y HYPERTHYROIDISM N EYE PROBLEMS N EDEMA N CHRONIC PAIN SYNDROME N HYPOTHYROIDISM N CAROTID BLOCKAGE N CONSTIPATION N BACK / NECK PROBLEMS N HAVE YOU BEEN HOSPITALIZED OR SEEN IN [facility] IN THE PAST YEAR ? N ATHEROSCLEROSIS N BREAST PROBLEMS N DIALYSIS N ECZEMA N OSTEOPOROSIS N ARTHRITIS N NO SIGNIFICANT PAST MEDICAL HISTORY N APPENDICITIS N DIABETES, TYPE N BAD TEETH N ENT N HEARTBURN / REFLUX N AUTISM SPECTRUM DISORDER (ASD) N HEPATITIS / LIVER DISEASE N GOUT N SLEEP DISORDER N ALZHEIMER'S DISEASE N Brain Problems N HERPES N DEMENTIA N HEADACHES/MIGRAINES N SEIZURES/EPILEPSY N VASCULAR DISEASE N PACEMAKER N Blood Disorder N DIZZINESS N HEART DISEASE/HEART PROBLEMS N KIDNEY DISEASE N MULTIPLE SCLEROSIS N CARDIAC ARRHYTHMIA N CANCER: SPECIFY N ATRIAL FIBRILLATION N Gall Stones N PULMONARY EMBOLISM N AUTOIMMUNE DISEASE N Gynecological HistoryNo gynecological history recorded. Obstetrics History GPAL:G 0 P 0 0 0 0 Immunizations Vaccine Type Date Status Note Provider Nam e and Address Organization Details Recorded Time Influenza, split virus, trivalent, preservative 3 completed Not Available [facility] 04/08/2022 12:50:47 SARS-COV-2 (COVID-19) vaccine, UNSPECIFIED 1 completed Not Available [facility] 04/08/2022 12:50:47 SARS-COV-2 (COVID-19) vaccine, UNSPECIFIED 1 completed Not Available [facility] 04/08/2022 12:50:47 Influenza, split virus, quadrivalent, preservative 8 completed Not Available [facility] 04/08/2022 12:50:47 Influenza, split virus, quadrivalent, preservative 7 completed Not Available [facility] 04/08/2022 12:50:47 Influenza, split virus, quadrivalent, preservative 9 completed Not Available [facility] 04/08/2022 12:50:48 Influenza, split virus, quadrivalent, PF 8 completed Not Available [facility] 04/08/2022 12:50:48 Influenza, split virus, quadrivalent, PF 2 completed Not Available [facility] 04/08/2022 12:50:48 Influenza, split virus, quadrivalent, PF 1 completed Not Available [facility] 04/08/2022 12:50:48 Influenza, split virus, quadrivalent, PF 0 completed Not Available [facility] 04/08/2022 12:50:48 Influenza, split virus, quadrivalent, PF 6 completed Not Available [facility] 04/08/2022 12:50:48 Influenza, split virus, quadrivalent, preservative 7 completed Not Available [facility] 04/08/2022 12:50:48 Influenza, split virus, quadrivalent, preservative 5 completed Not Available [facility] 04/08/2022 12:50:48 Influenza, split virus, trivalent, preservative 4 completed Not Available [facility] 04/08/2022 12:50:48 Past Encounters Encounter ID Performer Location Encounter Start Date Encounter Closed Date Diagnosis/Indication Diagnosis SNOMED-CT Code Diagnosis ICD10 Code Diagnosis IMO Codes Diagnosis Note [id number] Joanne Romero MD S[facility] Internal Med [facility] [address] [address] 06/17/2020 00:00:00 06/17/2020 17:28:57 [id number] Joanne Romero MD S_[facility] Internal Med [facility] [address] [address] 12/16/2020 00:00:00 12/16/2020 17:15:05 [id number] Joanne Romero MD [facility] Internal Med [facility] [address] [address] 06/16/2021 00:00:00 06/16/2021 17:34:55 [id number] Joanne Romero MD [facility] Internal Med [facility] [address] [address] 12/22/2021 00:00:00 12/22/2021 17:29:01 [id number] Joanne Romero MD [facility] Internal Med [facility] [address] [address] 07/27/2022 11:37:38 07/27/2022 11:58:19 Benign essential hypertension 1862188 I10 Pure hypercholesterolemia 722000739 E78.00 Gastroesop hageal reflux disease 479254532 K21.9 Vitamin D deficiency 347 62686 E55.9 [id number] Joanne Romero MD [facility] Internal Med [facility] [address] [address] 02/10/2023 14:21:17 02/10/2023 14:48:14 Adult health examination 069290565 Z00.00 Depression screening 171 669756 Z13.31 Benign ess ential hypertension 6631095 I10 Pure hypercholesterolemia 715618613 E78.00 Gastroesop hageal reflux disease 600765659 K21.9 [id number] Joanne Romero MD [facility] Internal Med [facility] [address] [address] 08/11/2023 14:30:25 08/11/2023 14:59:32 Renewal of prescription 371018475 Z76.0 Benign ess ential hypertension 5967577 I10 Pure hypercholesterolemia 390613976 E78.00 Gastroesop hageal reflux disease 221595101 K21.9 [id number] Joanne Romero MD [facility] Internal Med [facility] [address] [address] 02/21/2024 17:04:19 02/21/2024 17:41:50 Benign essential hypertension 7704081 I10 Gastroesop hageal reflux disease 640236210 K21.9 Pure hypercholesterolemia 749668681 E78.00 Osteoarthritis 418749937 M19.90 Vitamin D deficiency 347 82064 E55.9 [id number] Joanne Romero MD [facility] Internal Med [facility] [address] [address] 08/22/2024 14:41:44 08/22/2024 15:34:38 General examination of patient 684680887 Z00.00 [id number] Benign ess ential hypertension 5825914 I10 Pure hypercholesterolemia 762488751 E78.00 Gastroesop hageal reflux disease 392683458 K21.9 Health Concerns Section Related Observation LastModified by Organization Detai ls LastModified Time None Recorded Concern Status LastModified by Organization Details LastModified Time None Recorded Advance Directives Directive None Recorded Payers Insurance Date Sequence Insurance Name Policy Number Policy Carmichael Covered Member ID Carmichael Member ID Guarantor Name 08/21/2024 1 [facility] [employer] [id number] Fransisco Perry [id number] Norma Amador Notes Date Note Type Note Provider Name and Address Organization Details Recorded Time 023 text/ht ml Patient Name: Norma AmadorDate Of Service: Wednesday ( 07.27.2022 ): 1965 Age: 56 Vital Signs:Blood Pressure: Sitting Rt. Arm 128/82Pulse: Sitting 76 /min and RegularRespirations: 12Height 60 in or 1.5 mWeight 130 lb or 59.0 kgBMI 25.4Temperature: 96.8 F or 36.0 CPulse Oximetry: 97 % at rest on no oxygen Chief Complaint: Addressed in HPI Problems or conditions discussed in the HPI were the only ones reviewed during the encounter.Only social and family history addressed in the HPI were reviewed during this encounter. Attendant(s): None Constitutional and Systemic Symptoms: none Medication Reconciliation: from medication list. History of Present Illness #1. Essential Hypertension: Stage: Stage I Interval Neurological Complaints no headaches, dizziness, weakness, visual changes, ataxia and aphasia. No shortness of breath, orthopnea or cardiovascular symptoms. No other symptoms related to end organ damage. Pressure has been under fair control. Currently normal. No other end organ symptoms or findings. Therapy reviewed regarding management of hypertension and includes salt restriction and Toprol Xl and Zestoretic. #2. Type II Hypercholesterolaemia: Currently taking medication and tolerating well. No interval complaints of any muscle pain or arthralgia. No significant liver changes with medications. Last lipid panel: fair control. Therapy reviewed regarding treatment of cholesterol management and include diet and Zocor. #3. Hx of esophageal reflux currently stable. Hx of Complications: none The severity, duration and intensity of symptoms have improved. Frequency: infrequent Treatment consists medications taken on no regular basis. Current therapy includes no medication. There has been no nausea, eructation, vomiting, hematemesis, dysphagia, velopharyngeal insufficiency and odynophagia. No change in he frequency or intensity of symptoms. Has had no melena. Has had no hematemesis. Discuss the possibility of trying to reduce the frequency of the use of any PPI inhibitors or H2 antagonist to see if symptoms can be controlled with last intensive therapyMedication List Reviewed and Reconciled 07/27/2022Zocor 20 MG (TABLET - ORAL) One Hs For CholesterolZestoretic 12.5 MG-20 MG One Daily For Blood PressureToprol Xl 50 MG One Daily For Blood PressureMultivitamin DailyOs-clarence D Twice A DayAspirin 81 MG TABLET Once DailyVaccination and Ynkymjqpdmuj5948-31 Zhgbxvcfw5744-94 CovXChanger CompaniesSurgical HistoryLymphnode Biopsy NeckPreventative Testing Confirmed by Our Xyjfbmh9605/07/2022 MAMMOGRAM 411/09/2021 DEXA SCAN05/31/2021 ALBUMIN 4.3 G/DL05/29/2015 COLONOSCOPY (10 YEARS) UPPER ENDOSCOPYSocial HistorySmokes up to a pack of cigarettes a day for 20 + years stopped in 2003Drinks sociallyWorks as a housewifeFamily HistoryMother 60 from lung cancerFather 79 essential hypertension , CABG, CHFOne brother from cancer of lung Joanne Romero MD [address] [facility], [facility] [address], [place], [address] , [facility] [employer] 07/27/2022 11:57:30 024 text/ht ml Patient Name: Norma AmadorDate Of Service: Wednesday ( 02.10.2023 ): 1965 Age: 57 There has been approximately a 21 lb weight gain since 07/27/2022. This represents approximately a 16.2% change in weight. Weight change attributable to lifestyle changes. Vital Signs:Blood Pressure: Sitting Rt. Arm 120/68Pulse: Sitting 78 /min and RegularRespiratory Rate: 12Height 60 in or 1.5 mWeight 151 lb or 68.5 kgBMI 29.5Temperature: 97 F or 36.1 CPulse Oximetry: 99 % at rest on no oxygen Chief Complaint: Addressed in HPI Problems or conditions discussed in the HPI were the only ones reviewed during the encounter.Only social and family history addressed in the HPI were reviewed during this encounter. Attendant(s): NoneConstitutional and Systemic Symptoms:none Medication Reconciliation: from medication list. History of Present Illness In for a well patient check up. Last well patient evaluation was approximately one year. No interval complaints of any major medical problems. No hx of any chest pain, shortness of breath, nausea, vomiting, diarrhea or constitutional symptoms. Also being followed for other chronically monitored problems.Has Had A Mammogram already doneHas Had A Pap Smear dueImmunizations Up To Date or refuses to takeNo Significant Change In Family HxColonoscopy or Cologuard: not dueFall Risk normalDepression Score: 0Hearing normalVision correctedReviewed Smoking and Drug HistoryReviewed Immunization HistoryInstructed on importance of weight on diabetes, heart and other diseases aggravated by obesity. #1. Essential Hypertension: Stage: Stage I Interval Neurological Complaints no headaches, dizziness, weakness, visual changes, ataxia, aphasia and apraxia. No shortness of breath, orthopnea or cardiovascular symptoms. No other symptoms related to end organ damage. Pressure has been under excellent control. Currently normal. No other end organ symptoms or findings. Therapy reviewed regarding management of hypertension and includes salt restriction and Toprol Xl and Zestoretic. #2. Type II Hypercholesterolaemia: Currently taking medication and tolerating well. No interval complaints of any muscle pain or arthralgia. No significant liver changes with medications. Last lipid panel: fair control. Therapy reviewed regarding treatment of cholesterol management and include diet and Zocor. #3. Hx of esophageal reflux currently stable. Hx of Complications: none The severity, duration and intensity of symptoms have remained the same. Frequency: most meals Treatment consists medications taken on no regular basis. Current therapy includes no medication. There has been no nausea, eructation, vomiting, hematemesis, dysphagia, velopharyngeal insufficiency and odynophagia. No change in he frequency or intensity of symptoms. Has had no melena. Has had no hematemesis. DiscussedNAMedication List Reviewed and Reconciled 02/10/2023Zocor 20 MG (TABLET - ORAL) One Hs For CholesterolZestoretic 12.5 MG-20 MG One Daily For Blood PressureToprol Xl 50 MG One Daily For Blood PressureMultivitamin DailyOs-clarence D Twice A DayAspirin 81 MG TABLET Once DailyOxybutynin 5 MG TABLET Once Daily For Hot FlashesVaccination and Sopqgljitvnm0435-73 Wcjfpsswg4649-39 CovXChanger CompaniesSurgical HistoryLymphnode Biopsy NeckPreventative Testing Confirmed by Our Bcvgvdo4501/23/2023 ALBUMIN 4.0 G/DL N005/07/2022 MAMMOGRAM /09/2021 DEXA SCAN05/29/2015 COLONOSCOPY (10 YEARS) UPPER ENDOSCOPYSocial HistorySmokes up to a pack of cigarettes a day for 20 + years stopped in 2003Drinks sociallyWorks as a housewifeFamily HistoryMother 60 from lung cancerFather 79 essential hypertension , CABG, CHFOne brother from cancer of lung TEST RESULT RANGE UNITSCBC (INCLUDES DIFF/PLT) Date: 01/23/2023WHITE BLOOD CELL COUNT 6.4 3.8-10.8 THOUSAND/ULHEMOGLOBIN 14.3 11.7-15.5 G/DLHEMATOCRIT 43.3 35.0-45.0 %PLATELET COUNT 275 140-400 THOUSAND/ULCOMPREHENSIVE METABOLIC PANEL Date: 01/23/2023SODIUM 138 135-146 MMOL/LPOTASSIUM 3.9 3.5-5.3 MMOL/LGLUCOSE 99 65-99 MG/DLUREA NITROGEN (BUN) 18 7-25 MG/DLCREATININE 0.62 0.50-1.03 MG/DLEGFR 103 > OR = 60 ML/MIN/1.44T6ZTIXREEBX, TOTAL 0.5 0.2-1.2 MG/DLALKALINE PHOSPHATASE 92 37-153 U/LAST 20 10-35 U/LALT 24 6-29 U/LLIPID PANEL, STANDARD Date: 01/23/2023HOLESTEROL, TOTAL 189 <200 MG/DLHDL CHOLESTEROL 55 > OR = 50 MG/DLTRIGLYCERIDES 118 <150 MG/DLLDL-CHOLESTEROL 111 MG/DL (CALC)T4, FREE Date: 01/23/2023T4, FREE 1.3 0.8-1.8 NG/DLTSH Date: 01/23/2023TSH 1.28 0.40-4.50 MIU/LVITAMIN D,25-OH,TOTAL,IA Date: 01/23/2023VITAMIN D,25-OH,TOTAL,IA 55 30-100 NG/ML Joanne Romero MD [address] [facility], [facility] [address], [place], [address] , [facility] [employer] 02/10/2023 14:45:24 024 text/ht ml Patient Name: Norma AmadorDate Of Service: Wednesday ( 08.11.2023 ): 1965 Age: 57 There has been approximately a 19 lb weight loss since 02/10/2023. This represents approximately a 12.6% change in weight. Weight change attributable to lifestyle changes. Vital Signs:Blood Pressure: Sitting Rt. Arm 138/80Pulse: Sitting 93 /min and RegularRespiratory Rate: 12Height 60 in or 1.5 mWeight 132 lb or 59.9 kgBMI 25.8Temperature: 97.2 F or 36.2 CPulse Oximetry: 98 % at rest on no oxygen Chief Complaint: Addressed in HPI Problems or conditions discussed in the HPI were the only ones reviewed during the encounter.Only social and family history addressed in the HPI were reviewed during this encounter. Attendant(s): None and HusbandConstitutional and Systemic Symptoms:none Medication Reconciliation: from medication list. History of Present Illness #1. Essential Hypertension: Stage: Stage I Interval Neurological Complaints no headaches. No shortness of breath, orthopnea or cardiovascular symptoms. No other symptoms related to end organ damage. Pressure has been under fair control. Currently normal. No other end organ symptoms or findings. Therapy reviewed regarding management of hypertension and includes salt restriction and Toprol Xl and Zestoretic. #2. Type II Hypercholesterolaemia: Currently taking medication and tolerating well. No interval complaints of any muscle pain or arthralgia. No significant liver changes with medications. Last lipid panel: fair control. Therapy reviewed regarding treatment of cholesterol management and include diet and Zocor. #3. Hx of esophageal reflux currently stable. Hx of Complications: none The severity, duration and intensity of symptoms have improved. Frequency: infrequent Treatment consists medications taken on no regular basis. Current therapy includes no medication. There has been no nausea, eructation, vomiting, hematemesis, dysphagia, velopharyngeal insufficiency and odynophagia. No change in he frequency or intensity of symptoms. Has had no melena. Has had no . Discussed use of H2 antagonists NA. Active Medication ListZocor 20 MG (TABLET - ORAL) One Hs For CholesterolZestoretic 12.5 MG-20 MG One Daily For Blood PressureToprol Xl 50 MG One Daily For Blood PressureMultivitamin DailyOs-clarence D Twice A DayAspirin 81 MG TABLET Once DailyOxybutynin 5 MG TABLET Once Daily For Hot Flashes Vaccination and [id number] [id number] [facility] [employer] [id number] Lymphnode Biopsy Neck Preventative Oyyedwe9105/03/2023 LDCT ALBUMIN 4.0 G/DL N005/07/2022 MAMMOGRAM DEXA SCAN05/29/2015 COLONOSCOPY (10 YEARS) UPPER ENDOSCOPY Social HistorySmokes up to a pack of cigarettes a day for 20 + years stopped in 2003Drinks sociallyWorks as a 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 Arm 118/60Pulse: Sitting 84 /min and RegularRespiratory Rate: 16Height 60 in or 1.5 mWeight 131 lb or 59.4 kgBMI 25.6Temperature: 97 F or 36.1 CPulse Oximetry: 95 % at rest on no oxygen Chief Complaint: Addressed in HPI Problems or conditions discussed in the HPI were the only ones reviewed during the encounter.Only social and family history addressed in the HPI were reviewed during this encounter. Attendant(s): NoneConstitutional and Systemic Symptoms:none Medication Reconciliation: from medication list. [id number]: mammogram shows a focal right breast asymmetry superior on the screening mammogram. Additional mammographic views and possible breast ultrasound recommended. History of Present Illness #1. Essential Hypertension: Stage: Stage I Interval Neurological Complaints no headaches, dizziness, weakness, visual changes, ataxia, aphasia and apraxia. No shortness of breath, orthopnea or cardiovascular symptoms. No other symptoms related to end organ damage. Pressure has been under excellent control. Currently normal. No other end organ symptoms or findings. Therapy reviewed regarding management of hypertension and includes salt restriction and Toprol Xl and Zestoretic. #2. Type II Hypercholesterolaemia: Currently taking medication and tolerating well. No interval complaints of any muscle pain or arthralgia. No significant liver changes with medications. Last lipid panel: fair control. Therapy reviewed regarding treatment of cholesterol management and include diet and Zocor. #3. Hx of esophageal reflux currently stable. Hx of Complications: none The severity, duration and intensity of symptoms have improved. Frequency: most meals Treatment consists medications taken on no regular basis. Current therapy includes no medication. There has been no nausea, eructation, vomiting, hematemesis, dysphagia, velopharyngeal insufficiency and odynophagia. No change in he frequency or intensity of symptoms. Has had no melena. Has had no . Discussed use of H2 antagonists NA. #4. Hx of DJD stable. No interval complaints of any additional joint pain, swelling or redness. Joints most involved include knees and hips. Medications: none The DJD does not interfere with ADL and ambulation. Active Medication ListZocor 20 MG (TABLET - ORAL) One Hs For CholesterolZestoretic 12.5 MG-20 MG One Daily For Blood PressureToprol Xl 50 MG One Daily For Blood PressureMultivitamin DailyOs-clarence D Twice A DayAspirin 81 MG TABLET Once DailyOxybutynin 5 MG TABLET Once Daily For Hot Flashes Vaccination and Immunization(X) 2021- INFLUENZA(X) 2020- COVID [employer] [facility] [id number] Lymphnode Biopsy Neck Preventative Testing( ) 01/20/2024 Mammogram 01/19/2025( ) 05/03/2023 LDCT 05/02/2024( ) 01/23/2023 Albumin 4.0 G/DL N(X) 12/16/2021 DEXA Scan 12/17/2023( ) 05/29/2015 Colonoscopy (10 Years) 05/28/2025(X) 04/30/2003 Upper Endoscopy 04/29/2013 Social HistorySmokes up to a pack of cigarettes a day for 20 + years stopped in 2003Drinks sociallyWorks as a housewife Family HistoryMother 60 from lung cancerFather 79 essential hypertension , CABG, CHFOne brother from cancer of lung Joanne Romero MD [address] [facility], [address], [place], [address] , [place] [facility] 02/21/2024 17:41:08 025 text/tyrell mckeon Patient Name: Norma Arroyo Of Service: Wednesday ( 08.22.2024 ): 1965 Age: 58 Vital Signs:Blood Pressure: Sitting Rt. Arm 118/72Pulse: Sitting 76 /min and RegularRespiratory Rate: 16Height 60 in or 1.5 mWeight 131 lb or 59.4 kgBMI 25.6Temperature: 97 F or 36.1 CPulse Oximetry: 97 % at rest on no oxygen Chief Complaint: Addressed in HPI Problems or conditions discussed in the HPI were the only ones reviewed during the encounter.Only social and family history addressed in the HPI were reviewed during this encounter. Attendants(s) + NoneConstitutional and Systemic Symptoms:none Medication Reconciliation: from medication list. [id number]: mammogram shows a focal right breast asymmetry superior on the screening mammogram. Additional mammographic views and possible breast ultrasound recommended. History of Present Illness In for a well patient check up. Last well patient evaluation was approximately one year. No interval complaints of any major medical problems. No hx of any chest pain, shortness of breath, nausea, vomiting, diarrhea or constitutional symptoms. Also being followed for other chronically monitored problems.Has Had A Mammogram Cass Had A Pap Smear NAImmunizations Up To Date or refuses to takeNo Significant Change In Family HxColonoscopy or Cologuard: not dueFall Risk normalHearing normalVision normalReviewed Smoking and Drug HistoryReviewed Immunization HistoryInstructed on importance of weight on diabetes, heart and other diseases aggravated by obesity. #1. Essential Hypertension: Stage: normal Interval Neurological Complaints no headaches, dizziness, weakness, visual changes, ataxia, aphasia and apraxia. No shortness of breath, orthopnea or cardiovascular symptoms. No other symptoms related to end organ damage. Pressure has been under excellent control. Currently normal. No other end organ symptoms or findings. Therapy reviewed regarding management of hypertension and includes salt restriction and Toprol Xl and Zestoretic. #2. Type II Hypercholesterolaemia: Currently taking medication and tolerating well. No interval complaints of any muscle pain or arthralgia. No significant liver changes with medications. Last lipid panel: fair control. Therapy reviewed regarding treatment of cholesterol management and include diet and Rosuvastatin. #3. Hx of esophageal reflux currently stable. Hx of Complications: none The severity, duration and intensity of symptoms have improved. Frequency: infrequent Treatment consists medications taken on no regular basis. Current therapy includes no medication. There has been no nausea, eructation, vomiting, hematemesis, dysphagia, velopharyngeal insufficiency and odynophagia. No change in he frequency or intensity of symptoms. Has had no melena. Has had no . Discussed use of H2 antagonists and the possibility of trying to reduce the frequency of the use of any PPI inhibitors and try H2 antagonists to see if symptoms can be controlled with lease intensive therapy since a number of complications are associated with chronic prolonged use of PPI inhibitors. Wellness Evaluation PHQ-2 Score Last Two Weeks Last Two Weeks: 0: Not at all 1: Several Days 2: More than half 3: Almost Every day #1. Little interest or pleasure in doing things: Not At All :Score 0#2. Feeling down, depressed, or hopeless: Not At All :Score 0Score 0FAST Stage: 1 No functional decline Basic ADLS AmbulationNormalGroomingGeneral Personal Hygiene NormalToiletryNormalDressingDresses Without AssistanceEatingFeeds Self Instrumental ADLS Managing Finances YesManaging Health YesShopping YesPreparing Meals YesUsing Technology YesHouse Work YesTaking Care of Pets YesTaking Care Children YesTransportation Yes Additional Topics Advanced DirectivesDeclinedLiving WillDeclined Social and Physical Activities Drinking History: NoneExercise 20 Minutes per Week: Yes, some of timeDifficulty Driving Car: NoOther Problems: None,Falling,Orthostatic,Trouble Eating,Teeth Denture Problems,Problems using Telephone,Tiredness or fatigue Smoking History1 or 2 Packs Daily for 25 yearsCannabis HistoryDoes Not Use End Of Wellness Section Active Medication ListRosuvastatin 20 MG TABLET One DailyZestoretic 12.5 MG-20 MG One Daily For Blood PressureToprol Xl 50 MG One Daily For Blood PressureMultivitamin DailyOs-clarence D Twice A DayAspirin 81 MG TABLET Once DailyOxybutynin 5 MG TABLET Once Daily For Hot Flashes Adverse Drug Reactions ReviewedNo Known Adverse Drug Reactions! Vaccination and Immunization (X) 2021- INFLUENZA(X) 2020- AppTriggerImmunizations and Vaccinations Discussed and Implemented if feasible In the Office. Else referred to pharmacies. Surgical History 1990- Lymphnode Biopsy Neck Preventative Testing ( ) 08/14/2024 Albumin 4.3 G/DL N( ) 03/02/2024 Mammogram 03/02/2025(X) 05/03/2023 LDCT 05/02/2024(X) 12/16/2021 DEXA Scan 12/17/2023( ) 05/29/2015 Colonoscopy (10 Years) 05/28/2025(X) 04/30/2003 Upper Endoscopy 04/29/2013Preventative Testing Discussed and Scheduled if Acceptable to Patient Social HistorySmokes up to a pack of cigarettes a day for 20 + years stopped in 2003Drinks sociallyWorks as a housewife Family HistoryMother 60 from lung cancerFather 79 essential hypertension , CABG, CHFOne brother from cancer of lung TEST RESULT RANGE UNITSCBC (INCLUDES DIFF/PLT) Date: 08/14/2024WHITE BLOOD CELL COUNT 6.5 3.8-10.8 THOUSAND/ULHEMOGLOBIN 15.3 11.7-15.5 G/DLHEMATOCRIT 47.2 35.0-45.0 %PLATELET COUNT 279 140-400 THOUSAND/ULCOMPREHENSIVE METABOLIC PANEL Date: 08/14/2024SODIUM 141 135-146 MMOL/LPOTASSIUM 3.8 3.5-5.3 MMOL/LGLUCOSE 103 65-99 MG/DLUREA NITROGEN (BUN) 24 7-25 MG/DLCREATININE 0.64 0.50-1.05 MG/DLEGFR 101 > OR = 60 ML/MIN/1.36R3RSGJA PANEL, STANDARD Date: 5CHOLESTEROL, TOTAL 212 <200 MG/DLHDL CHOLESTEROL 51 > OR = 50 MG/DLTRIGLYCERIDES 168 <150 MG/DLLDL-CHOLESTEROL 130 MG/DL (CALC)T4, FREE Date: 08/14/2024T4, FREE 1.2 0.8-1.8 NG/DLTSH Date: 08/14/2024TSH 1.19 0.40-4.50 MIU/LVITAMIN D,25-OH,TOTAL,IA Date: 08/14/2024VITAMIN D,25-OH,TOTAL,IA 67 30-100 NG/ML Joanne Romero MD [address] [facility], [facility] [address], [place], [address] , [place] [facility] 08/22/2024 15:30:02 OBGyn Episode No OBEpisode recorded.
[2025-02-07 13:12] LABS: Influenza A QL RT-PCR Positive (Negative); Influenza B QL RT-PCR Negative (Negative); RSV RNA, RT-PCR Negative (Negative); SARS-CoV-2 RNA PCR Negative (Negative)
== END 2025-02-07 11:33 | disposition home or self-care (01) ==
PROVIDERS: PCP Internal Medicine; Visit Provider Internal Medicine
DX: R50.9 Fever, unspecified (principal); Z20.822 Contact with and (suspected) exposure to COVID-19
CPT/HCPCS: 87637